=== PATIENT | male | born 1955 | race Caucasian/White ===

== ENCOUNTER → 2017-01-03 | Outpatient (CLI) | payer BC ==
[2017-01-03 13:57] LABS: CH 33.4; CHCM 35.1; HCT 44.9 % (39.0-53.0); HDW 2.32; HGB 15.7 gm/dL (13.0-17.5); MCH 33.4 pg (25.0-35.0); MCV 95.5 fL (80.0-100.0); Mean Platelet Volume 7.2; WBC 7.7 k/uL (3.8-10.6)
[2017-01-03 14:23] LABS: ALT 48 U/L (21-72); AST 29 U/L (17-59); Alkaline Phosphatase 72 U/L (38-126); Anion Gap 6 mmol/L; Blood Urea Nitrogen 10 mg/dL (9-20); C Reactive Protein <5.0 mg/L (<10.0); Calcium 10.3 mg/dL (8.4-10.2); Carbon Dioxide 26 mmol/L (22-30); Chloride 95 mmol/L (98-107); Glucose 102 mg/dL (74-99); Non-African American GFR(MDRD) >60 (>60 ml/min/1.73 sqM); Potassium 5.6 mmol/L (3.5-5.1); Sodium 127 mmol/L (137-145); Total Bilirubin 0.8 mg/dL (0.2-1.3); Total Protein 7.7 g/dL (6.3-8.2)
[2017-01-03 14:24] LABS: Rheumatoid Factor, Qnt <9 IU/mL (<12)
[2017-01-03 15:09] LABS: Erythrocyte Sedimentation Rate 8 mm/hr (0-15)
== END | disposition home or self-care (01) ==
LOC: LABWHC1 13:40
DX: R63.4 Abnormal weight loss (principal)
CPT/HCPCS: 36415; 80053; 84439; 84443; 85027; 85652; 86038; 86140; 86431

== ENCOUNTER → 2018-03-17 | Outpatient (CLI) | payer BC ==
--- NOTE | 2018-03-17 15:12 | XR ---
EXAMINATION TYPE: XR Hip Bilateral Complete DATE OF EXAM: 03/17/2018 CLINICAL HISTORY: Chronic bilateral hip pain TECHNIQUE: AP and frogleg views of the bilateral hips were obtained. COMPARISON: None. FINDINGS: There is no acute fracture/dislocation evident in either hip. The joint space in the righ t hip appears slightly narrowed in a cephalad direction with small subchondral cysts and marginal ost eophytes. The joint space in the left hip demonstrate small marginal osteophytes and mild cephalad n arrowing. The overlying soft tissue appears unremarkable. No suspicious osseous lesion is seen. Ather osclerosis is noted within the visualized portions of the pelvis. IMPRESSION: 1. No acute fracture or dislocation in either hip. 2. 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
--- NOTE | 2018-03-17 15:37 | XR ---
EXAMINATION TYPE: XR chest 2V DATE OF EXAM: 03/17/2018 COMPARISON: NONE HISTORY: Cough TECHNIQUE: Frontal and lateral views of the chest are obtained. FINDINGS: There is no focal air space opacity, pleural effusion, or pneumothorax seen. The cardiac silhouette size is upper limits of normal. The osseous structures are intact. There is pulmonary hy perinflation and flattening of the diaphragms relating to underlying COPD. Minimal multilevel degener ative changes of the spine are noted. IMPRESSION: No acute cardiopulmonary process. Radiographic sequela of COPD.
== END | disposition home or self-care (01) ==
LOC: RADXRMAIN 14:13
PROVIDERS: ATTEND Internal Medicine
DX: M16.0 Bilateral primary osteoarthritis of hip (principal); J44.9 Chronic obstructive pulmonary disease, unspecified
CPT/HCPCS: 71046; 73521

== ENCOUNTER 2018-11-02 11:18 | Emergency (ER) | payer BC ==
[2018-11-02 11:48] VITALS: RESP 16; TEMP 97.8
[2018-11-02] MEDS ORDERED: DIAZEPAM 5 MG TAB PO STA (13:21)
[2018-11-02] MEDS ORDERED: IBUPROFEN 800 MG TAB PO STA (13:21)
[2018-11-02] MEDS ORDERED: HYDROmorphone 1 MG/ML 1 ML SYRINGE IM STA (13:21)
[2018-11-02] MEDS ORDERED: DEXAMETHASONE 4 MG TAB PO STA (13:22)
[2018-11-02] MEDS ORDERED: ACETAMINOPHEN TAB 500 MG TAB PO STA (13:28)
--- NOTE | 2018-11-02 13:29 | ED ---
Back Pain [facility] - General Chief Complaint: Fall Stated Complaint: back pain Time Seen by Provider: 11/02/18 12:44 Source: patient, RN notes reviewed, old records reviewed Limitations: no limitations - History of Present Illness Initial Comments: This is a 62-year-old male the ER for evaluation. He presents today for evaluation regarding back pain, history of chronic back pain no trauma. Patient states he's on the floor today unable to stand up secondary to severe back pain. Patient is moving around but currently with the pain is been persistent. Patient does not want narcotic pain medication he states is female was causing her severe back pain that he has. Back pain appears to be more right-sided in nature than middle of back. Again denies any bowel or bladder issues. No neurological complaints no numbness and tingling down legs MD Complaint: back pain -: unknown (Patient is had back pain for months to years but more recently the last 2 weeks) Similar Symptoms Previously: Yes Place: home Radiation: none Severity: moderate Severity scale (1-10): 6 Quality: dull, crushing, aching Consistency: constant Improves With: none Worsens With: movement, sitting upright, walking Context: unknown Associated Symptoms: denies other symptoms - Related Data Home Medications Medication Instructions Recorded Confirmed ALPRAZolam [Xanax] 0.25 mg PO DAILY PRN 08/23/15 11/02/18 Aspirin [Adult Low Dose Aspirin EC] 81 mg PO DAILY 08/23/15 11/02/18 Benazepril HCl [Lotensin] 20 mg PO QAM 08/23/15 11/02/18 Carvedilol 25 mg PO BID 08/23/15 11/02/18 Citalopram Hydrobromide [CeleXA] 20 mg PO QAM 08/23/15 11/02/18 Spironolactone [Aldactone] 25 mg PO QAM 08/23/15 11/02/18 busPIRone HCl [Buspar] 10 mg PO DAILY 08/23/15 11/02/18 Acetaminophen [Tylenol 8 Hour] 650 mg PO Q12H PRN 11/02/18 11/02/18 Benazepril HCl 40 mg PO DAILY 11/02/18 11/02/18 Budesonide [Budesonide EC] 3 mg PO DAILY 11/02/18 11/02/18 Multivitamins, Thera [Multivitamin 1 tab PO DAILY 11/02/18 11/02/18 (formulary)] Pravastatin Sodium [Pravachol] 20 mg PO DAILY 11/02/18 11/02/18 Allergies Allergy/AdvReac Type Severity Reaction Status Date / Time cephalexin Allergy THROAT Verified 11/02/18 12:53 SWELLING Review of Systems ROS Statement: Those systems with pertinent positive or pertinent negative responses have been documented in the HPI. ROS Other: All systems not noted in ROS Statement are negative. Past Medical History Past Medical History: Hyperlipidemia, Hypertension Additional Past Medical History / Comment(s): ALLERGY. HEART ARRYTHMIA History of Any Multi-Drug Resistant Organisms: None Reported Past Surgical History: Heart Catheterization, Orthopedic Surgery Additional Past Surgical History / Comment(s): LEFT CARPAL TUNNEL Past Anesthesia/Blood Transfusion Reactions: No Reported Reaction Past Psychological History: Anxiety, Depression Smoking Status: Current every day smoker Past Alcohol Use History: Occasional Past Drug Use History: None Reported General Exam - General Exam Comments Initial Comments: Mild tenderness right lower extremity, negative SLR, no neurological findings Limitations: no limitations General appearance: alert, in no apparent distress Head exam: Present: atraumatic, normocephalic, normal inspection Eye exam: Present: normal appearance, PERRL, EOMI. Absent: scleral icterus, conjunctival injection, periorbital swelling ENT exam: Present: normal exam, mucous membranes moist Neck exam: Present: normal inspection. Absent: tenderness, meningismus, lymphadenopathy Respiratory exam: Present: normal lung sounds bilaterally. Absent: respiratory distress, wheezes, rales, rhonchi, stridor Cardiovascular Exam: Present: regular rate, normal rhythm, normal heart sounds. Absent: systolic murmur, diastolic murmur, rubs, gallop, clicks GI/Abdominal exam: Present: soft, normal bowel sounds. Absent: distended, tenderness, guarding, rebound, rigid Extremities exam: Present: normal inspection, full ROM, normal capillary refill. Absent: tenderness, pedal edema, joint swelling, calf tenderness Back exam: Present: normal inspection, full ROM, CVA tenderness (R), muscle spasm (Right sided), paraspinal tenderness. Absent: vertebral tenderness Neurological exam: Present: alert, oriented X3, CN II-XII intact Psychiatric exam: Present: normal affect, normal mood Skin exam: Present: warm, dry, intact, normal color. Absent: rash Course Vital Signs 11/02/18 11/02/18 11:46 15:52 Temperature 97.8 F Pulse Rate 84 88 Respiratory 16 16 Rate Blood Pressure 200/114 185/100 O2 Sat by Pulse 100 99 Oximetry - Reevaluation(s) Reevaluation #1: 11/02/18 15:13 Medical record is reviewed, patient again not asking for pain medication Reevaluation #2: 11/02/18 15:13 Patient is able to move around on bed rollover Medical Decision Making - Medical Decision Making 62 male the ER for evaluation of back pain. Chronic Back pain. Computed tomography scan is negative patient can be discharged - Radiology Data Radiology results: report reviewed (CT lumbar sacral spine abdominal pelvis negative for acute disease), image reviewed Disposition Clinical Impression: Back pain Disposition: HOME SELF-CARE Condition: Good Instructions (If sedation given, give patient instructions): Acute Low Back Pain (ED), Back Pain (ED), Lower Back Exercises (ED) Is patient prescribed a controlled substance at d/c from ED?: No Referrals: Sander Agustin MD [Primary Care Provider] - 1-2 days
--- NOTE | 2018-11-02 15:29 | CT ---
EXAMINATION TYPE: CT abdomen pelvis wo con DATE OF EXAM: 11/02/2018 COMPARISON: None INDICATION: Left flank pain. DLP: 353.3 mGycm, Automated exposure control for dose reduction was used. CONTRAST: 0 mL of Isovue 300. Study performed without Oral Contrast TECHNIQUE: Axial images were obtained from above the diaphragm to the pubic rami in the axial plane a t 5 mm thick sections. Reconstructed images are reviewed on the computer in the coronal plane. FINDINGS: Limited CT sections are obtained the lung bases. The lung bases are clear. Coronary artery calcific ation is noted. CT ABDOMEN: Liver: Normal Spleen: Normal Pancreas: Normal Adrenal glands: The adrenal glands are normal. Gallbladder: Normal Kidneys: No masses are evident. No hydronephrosis is present. No cysts are present. No renal stone s are identified. No hydronephrosis or hydroureter is evident. Aorta: Vascular calcification is within the aorta. Inferior vena cava: Normal. CT PELVIS: Loops of bowel within the abdomen and pelvis are normal. The study is performed without oral cont rast limiting bowel evaluation. Some fluid-filled loops of bowel are evident within the midabdomen. C onsider some ileus present. Appendix: Not identified. No suspicious inflammatory changes or dilated tubular structures are eviden t. Urinary bladder: Normal. Genitourinary structures: Prostate hypertrophy is present. Osseous structures: No suspicious lytic or sclerotic lesions. IMPRESSIONS: 1. No suspicious renal stones. 2. No suspicious abnormality to account for left flank pain. 3. Some small bowel ileus may be present. 4. Prostate hypertrophy
[2018-11-02 15:53] VITALS: BP 185/100; PULSE 88
== END 2018-11-02 15:52 | disposition home or self-care (01) ==
LOC: EC 11:18
DX: M62.830 Muscle spasm of back (principal); E78.5 Hyperlipidemia, unspecified; I10 Essential (primary) hypertension; F32.9 Major depressive disorder, single episode, unspecified; F41.9 Anxiety disorder, unspecified; F17.200 Nicotine dependence, unspecified, uncomplicated; Z88.1 Allergy status to other antibiotic agents; Z79.52 Long term (current) use of systemic steroids; Z79.82 Long term (current) use of aspirin; Z79.899 Other long term (current) drug therapy; Z86.79 Personal history of other diseases of the circulatory system; Z95.818 Presence of other cardiac implants and grafts; Z53.8 Procedure and treatment not carried out for other reasons
CPT/HCPCS: 74176; 99284; J8540

== ENCOUNTER 2022-10-22 13:56 | Inpatient (IN) | payer BC, MEDICARE ==
[2022-10-22 14:33] LABS: Basophils # (A) 0.1 k/uL (0-0.2); Basophils % (A) 1 %; Eosinophils # (A) 1.9 k/uL (0-0.7); Eosinophils % (A) 19 %; HCT 32.8 % (39.0-53.0); HGB 11.7 gm/dL (13.0-17.5); Lymphocytes # (A) 2.2 k/uL (1.0-4.8); Lymphocytes % (A) 21 %; MCH 31.8 pg (25.0-35.0); MCHC 35.5 g/dL (31.0-37.0); MCV 89.4 fL (80.0-100.0); Mean Platelet Volume 8.2; Monocytes # (A) 0.5 k/uL (0-1.0); Monocytes % (A) 5 %; Neutrophils # (A) 5.3 k/uL (1.3-7.7); Neutrophils % (A) 52 %; Platelet Count 248 k/uL (150-450); RBC 3.67 m/uL (4.30-5.90); RDW 12.2 % (11.5-15.5); WBC 10.1 k/uL (3.8-10.6)
[2022-10-22 14:48] LABS: ALT 16 U/L (4-49); AST 19 U/L (17-59); African American GFR (CKD) 41 (>60 ml/min/1.73 sqM); Albumin 4.2 g/dL (3.5-5.0); Alkaline Phosphatase 64 U/L (38-126); Anion Gap 9 mmol/L; Blood Urea Nitrogen 21 mg/dL (9-20); Calcium 9.1 mg/dL (8.4-10.2); Carbon Dioxide 18 mmol/L (22-30); Chloride 89 mmol/L (98-107); Glucose 111 mg/dL (74-99); Non-African American GFR(CKD) 35 (>60 ml/min/1.73 sqM); Potassium 5.8 mmol/L (3.5-5.1); Total Bilirubin 0.4 mg/dL (0.2-1.3); Total Protein 6.8 g/dL (6.3-8.2)
[2022-10-22 14:53] LABS: Sodium 116 mmol/L (137-145)
[2022-10-22 15:06] LABS: INR 0.9 (<1.2); Prothrombin Time 10.1 sec (9.0-12.0)
--- NOTE | 2022-10-22 15:55 | ED ---
General Adult HPI - General Chief complaint: Recheck/Abnormal Lab/Rx Stated complaint: abn labs Time Seen by Provider: 10/22/22 15:45 Source: patient, family, RN notes reviewed, old records reviewed Mode of arrival: wheelchair Limitations: no limitations - History of Present Illness Initial comments: This is a 66-year-old male who presents emergency department after she wanted Dr. Unger's office and he had blood work drawn the blood work showed sodium was low. Patient states he went to the office because he's been feeling weak over the last 2 weeks. Patient also states she's been quite nauseated and vomiting. Patient denies any fever chills. Patient denies any headache patient denies any numbness or weakness. Patient states he does feel little bit lightheaded occasionally. Patient denies any chest pain palpitations or difficulty breathi ng. Patient denies any abdominal pain. Patient denies any diarrhea. Patient denies any alcohol use though he used to be an alcoholic and he denies any illegal drug use. - Related Data Home Medications Medication Instructions Recorded Confirmed ALPRAZolam [Xanax] 0.25 mg PO DAILY PRN 08/23/15 11/02/18 Aspirin [Adult Low Dose Aspirin EC] 81 mg PO DAILY 08/23/15 11/02/18 Benazepril HCl [Lotensin] 20 mg PO QAM 08/23/15 11/02/18 Carvedilol 25 mg PO BID 08/23/15 11/02/18 Citalopram Hydrobromide [CeleXA] 20 mg PO QAM 08/23/15 11/02/18 Spironolactone [Aldactone] 25 mg PO QAM 08/23/15 11/02/18 busPIRone HCl [Buspar] 10 mg PO DAILY 08/23/15 11/02/18 Acetaminophen [Tylenol 8 Hour] 650 mg PO Q12H PRN 11/02/18 11/02/18 Benazepril HCl 40 mg PO DAILY 11/02/18 11/02/18 Budesonide [Budesonide EC] 3 mg PO DAILY 11/02/18 11/02/18 Multivitamins, Thera [Multivitamin 1 tab PO DAILY 11/02/18 11/02/18 (formulary)] Pravastatin Sodium [Pravachol] 20 mg PO DAILY 11/02/18 11/02/18 Allergies Allergy/AdvReac Type Severity Reaction Status Date / Time cephalexin Allergy THROAT Verified 11/02/18 12:53 SWELLING Review of Systems ROS Statement: Those systems with pertinent positive or pertinent negative responses have been documented in the HPI. ROS Other: All systems not noted in ROS Statement are negative. Past Medical History Past Medical History: Atrial Fibrillation, Hyperlipidemia, Hypertension Additional Past Medical History / Comment(s): ALLERGY. HEART ARRYTHMIA History of Any Multi-Drug Resistant Organisms: None Reported Past Surgical History: Heart Catheterization, Orthopedic Surgery Additional Past Surgical History / Comment(s): LEFT CARPAL TUNNEL Past Anesthesia/Blood Transfusion Reactions: No Reported Reaction Past Psychological History: Anxiety, Depression Smoking Status: Current every day smoker Past Alcohol Use History: Occasional Past Drug Use History: None Reported General Exam - General Exam Comments Initial Comments: GENERAL: Patient is well-developed and well-nourished. Patient is nontoxic and well- hydrated and is in mild distress. ENT: Neck is soft and supple. No significant lymphadenopathy is noted. Oropharynx is clear. Moist mucous membranes. Neck has full range of motion without eliciting any pain. EYES: The sclera were anicteric and conjunctiva were pink and moist. Extraocular movements were intact and pupils were equal round and reactive to light. Eyelids were unremarkable. PULMONARY: Unlabored respirations. Good breath sounds bilaterally. No audible rales rhonchi or wheezing was noted. CARDIOVASCULAR: There is a regular rate and rhythm without any murmurs gallops or rubs. ABDOMEN: Soft and nontender with normal bowel sounds. SKIN: Skin is clear with no lesions or rashes and otherwise unremarkable. NEUROLOGIC: Patient is alert and oriented x3. Cranial nerves II through XII are grossly intact. Motor and sensory are also intact. Normal speech, volume and content. Symmetrical smile. MUSCULOSKELETAL: Normal extremities with adequate strength and full range of motion. LYMPHATICS: No significant lymphadenopathy is noted PSYCHIATRIC: Normal psychiatric evaluation. Limitations: no limitations Course Vital Signs 10/22/22 10/22/22 14:02 15:53 Temperature 97.9 F Pulse Rate 71 59 L Respiratory 16 20 Rate Blood Pressure 121/57 143/61 O2 Sat by Pulse 99 100 Oximetry Medical Decision Making - Medical Decision Making EKG was interpreted by myself shows sinus bradycardia 58 bpm [place] interval 294 QRS is under 1 Q-T intervals 490 QTC is 405. Patient's EKG shows no ST segment elevation or depression Was pt. sent in by a medical professional or institution (, [facility], [employer], urgent care, hospital, or jail...) When possible be specific @ -Dr. Unger sent the patient in Did you speak to anyone other than the patient for history (EMS, parent, family, police, friend...)? What history was obtained from this source @ -No Did you review nursing and triage notes (agree or disagree)? Why? @ -I reviewed and agree with nursing and triage notes Were old charts reviewed (outside hosp., previous admission, EMS record, old EKG, old radiological studies, urgent care reports/EKG's, jail records)? Report findings @ -No old charts were reviewed Differential Diagnosis (chest pain, altered mental status, abdominal pain women, abdominal pain men, vaginal bleeding, weakness, fever, dyspnea, syncope, headache, dizziness, GI bleed, back pain, seizure, CVA, palpatations, mental health, musculoskeletal)? @ -Differential Weakness: Hypoglycemia, shock, sepsis, hyponatremia, anemia, infection, OK, ETOH, adverse medicine reaction, overdose, stroke, this is not meant to be an all-inclusive list. EKG interpreted by me (3pts min.). @ -As above X-rays interpreted by me (1pt min.). @ -None done CT interpreted by me (1pt min.). @ -None done U/S interpreted by me (1pt. min.). @ -None done What testing was considered but not performed or refused? (CT, X-rays, U/S, labs)? Why? @ -None What meds were considered but not given or refused? Why? @ -None Did you discuss the management of the patient with other professionals (professionals i.e. [facility] Santamaria, [employer], lab, RT, psych nurse, group social worker, ferry operator, teacher, parking officer, trimming caser)? Give summary @ -Dr. Unger he agreed to admit the patient I spoke with him about results Was smoking cessation discussed for >3mins.? @ -No Was critical care preformed (if so, how long)? @ -No Were there social determinants of health that impacted care today? How? (Homelessness, low income, unemployed, alcoholism, drug addiction, transportation, low edu. Level, literacy, decrease access to med. care, shelter, rehab)? @ -No Was there de-escalation of care discussed even if they declined (Discuss DNR or withdrawal of care, Hospice)? DNR status @ -No What co-morbidities impacted this encounter? (DM, HTN, Smoking, COPD, CAD, Cancer, CVA, ARF, Chemo, Hep., AIDS, mental health diagnosis, sleep apnea, morbi d obesity)? @ -None Was patient admitted / discharged? Hospital course, mention meds given and route, prescriptions, significant lab abnormalities, going to OR and other pertinent info. @ -She was given a fluid bolus also got Zofran for the vomiting. I spoke with Dr. Unger he agreed to admit the patient admitted the patient I consult the nephrology Undiagnosed new problem with uncertain prognosis? @ -No Drug Therapy requiring intensive monitoring for toxicity (Heparin, Nitro, In sulin, Cardizem)? @ -No Were any procedures done? @ -No Diagnosis/symptom? @ -Hyponatremia Acute, or Chronic, or Acute on Chronic? @ -Acute Uncomplicated (without systemic symptoms) or Complicated (systemic symptoms)? @ -Complicated Side effects of treatment? @ -No Exacerbation, Progression, or Severe Exacerbation? @ -No Poses a threat to life or bodily function? How? (Chest pain, USA, OK, pneumonia, PE, COPD, DKA, ARF, appy, cholecystitis, CVA, Diverticulitis, Homicidal, Suicidal, threat to staff... and all critical care pts) @ -Abscess could lead to further morbidity mortality Diagnosis/symptom? @ -Renal insufficiency Acute, or Chronic, or Acute on Chronic? @ -Acute Uncomplicated (without systemic symptoms) or Complicated (systemic symptoms)? @ -Complicated Side effects of treatment? @ -none Exacerbation, Progression, or Severe Exacerbation] @ -no Poses a threat to life or bodily function? @ -no Diagnosis/symptom? @ -Hyperkalemia Acute, or Chronic, or Acute on Chronic? @ -Acute Uncomplicated (without systemic symptoms) or Complicated (systemic symptoms)? @ -Complicated Side effects of treatment? @ -none Exacerbation, Progression, or Severe Exacerbation] @ -no Poses a threat to life or bodily function? @ -no - Lab Data Result diagrams: 10/22/22 14:07 06/27/23 14:07 Lab Results 10/22/22 10/22/22 10/22/22 Range/Units 14:07 14:07 14:07 WBC 10.1 (3.8-10.6) k/uL RBC 3.67 L (4.30-5.90) m/uL Hgb 11.7 L (13.0-17.5) gm/dL Hct 32.8 L (39.0-53.0) % MCV 89.4 (80.0-100.0) fL MCH 31.8 (25.0-35.0) pg MCHC 35.5 (31.0-37.0) g/dL RDW 12.2 (11.5-15.5) % Plt Count 248 (150-450) k/uL MPV 8.2 Neutrophils % 52 % Lymphocytes % 21 % Monocytes % 5 % Eosinophils % 19 % Basophils % 1 % Neutrophils # 5.3 (1.3-7.7) k/uL Lymphocytes # 2.2 (1.0-4.8) k/uL Monocytes # 0.5 (0-1.0) k/uL Eosinophils # 1.9 H (0-0.7) k/uL Basophils # 0.1 (0-0.2) k/uL PT 10.1 (9.0-12.0) sec INR 0.9 (<1.2) Sodium 116 L* (137-145) mmol/L Potassium 5.8 H (3.5-5.1) mmol/L Chloride 89 L (98-107) mmol/L Carbon Dioxide 18 L (22-30) mmol/L Anion Gap 9 mmol/L BUN 21 H (9-20) mg/dL Creatinine 1.93 H (0.66-1.25) mg/dL Est GFR (CKD-EPI)AfAm 41 (>60 ml/min/1.73 sqM) Est GFR (CKD-EPI)NonAf 35 (>60 ml/min/1.73 sqM) Glucose 111 H (74-99) mg/dL Calcium 9.1 (8.4-10.2) mg/dL Total Bilirubin 0.4 (0.2-1.3) mg/dL AST 19 (17-59) U/L ALT 16 (4-49) U/L Alkaline Phosphatase 64 (38-126) U/L Troponin I (0.000-0.034) ng/mL Total Protein 6.8 (6.3-8.2) g/dL Albumin 4.2 (3.5-5.0) g/dL 10/22/22 Range/Units 14:07 WBC (3.8-10.6) k/uL RBC (4.30-5.90) m/uL Hgb (13.0-17.5) gm/dL Hct (39.0-53.0) % MCV (80.0-100.0) fL MCH (25.0-35.0) pg MCHC (31.0-37.0) g/dL RDW (11.5-15.5) % Plt Count (150-450) k/uL MPV Neutrophils % % Lymphocytes % % Monocytes % % Eosinophils % % Basophils % % Neutrophils # (1.3-7.7) k/uL Lymphocytes # (1.0-4.8) k/uL Monocytes # (0-1.0) k/uL Eosinophils # (0-0.7) k/uL Basophils # (0-0.2) k/uL PT (9.0-12.0) sec INR (<1.2) Sodium (137-145) mmol/L Potassium (3.5-5.1) mmol/L Chloride (98-107) mmol/L Carbon Dioxide (22-30) mmol/L Anion Gap mmol/L BUN (9-20) mg/dL Creatinine (0.66-1.25) mg/dL Est GFR (CKD-EPI)AfAm (>60 ml/min/1.73 sqM) Est GFR (CKD-EPI)NonAf (>60 ml/min/1.73 sqM) Glucose (74-99) mg/dL Calcium (8.4-10.2) mg/dL Total Bilirubin (0.2-1.3) mg/dL AST (17-59) U/L ALT (4-49) U/L Alkaline Phosphatase (38-126) U/L Troponin I <0.012 (0.000-0.034) ng/mL Total Protein (6.3-8.2) g/dL Albumin (3.5-5.0) g/dL Disposition Clinical Impression: Hyponatremia, Hyperkalemia, Renal insufficiency Disposition: ADMITTED IP TO THIS HOSP Referrals: Roland Unger Jr, [Primary Care Provider] - 1-2 days Time of Disposition: 16:13
[2022-10-22] MEDS ORDERED: SODIUM CHLORIDE 0.9% 1,000 ML IV ONE (16:27)
[2022-10-22] MEDS ORDERED: ONDANSETRON 4 MG/2 ML VIAL IVP PRN (16:28)
[2022-10-22] MEDS ORDERED: SODIUM CHLORIDE 0.9% 500 ML 500 ML IV ONE (16:28)
[2022-10-22] MEDS ORDERED: ONDANSETRON 4 MG/2 ML VIAL IVP STA (16:28)
[2022-10-22] MEDS ORDERED: ALPRAZolam 0.25 MG TAB PO PRN (20:42)
[2022-10-22 20:57] LABS: ALT 16 U/L (4-49); AST 19 U/L (17-59); African American GFR (CKD) 52 (>60 ml/min/1.73 sqM); Alkaline Phosphatase 61 U/L (38-126); Anion Gap 10 mmol/L; Blood Urea Nitrogen 20 mg/dL (9-20); Calcium 8.8 mg/dL (8.4-10.2); Carbon Dioxide 20 mmol/L (22-30); Chloride 89 mmol/L (98-107); Glucose 91 mg/dL (74-99); Non-African American GFR(CKD) 45 (>60 ml/min/1.73 sqM); Potassium 5.2 mmol/L (3.5-5.1); Total Bilirubin 0.3 mg/dL (0.2-1.3); Total Protein 6.7 g/dL (6.3-8.2)
[2022-10-22 20:59] LABS: Sodium 119 mmol/L (137-145)
[2022-10-22] MEDS ORDERED: ALPRAZolam 0.25 MG TAB PO SCH (21:00)
[2022-10-22] MEDS: PRAVASTATIN SODIUM 20 MG TAB PO SCH (21:44)
[2022-10-22 22:44] LABS: Appearance,Urine Clear (Clear); Bilirubin,Urine Negative (Negative); Blood,Urine Negative (Negative); Color,Urine Yellow; Glucose,Urine (UA) Negative (Negative); Ketones,Urine Negative (Negative); Leukocyte Esterase,Urine Negative (Negative); Nitrite,Urine Negative (Negative); PH, Urine 5.5 (5.0-8.0); Protein,Urine Negative (Negative); Urobilinogen,Urine <2.0 mg/dL (<2.0)
[2022-10-23 04:26] LABS: ALT 14 U/L (4-49); AST 17 U/L (17-59); African American GFR (CKD) 57 (>60 ml/min/1.73 sqM); Albumin 3.6 g/dL (3.5-5.0); Alkaline Phosphatase 55 U/L (38-126); Anion Gap 10 mmol/L; Blood Urea Nitrogen 19 mg/dL (9-20); Calcium 8.6 mg/dL (8.4-10.2); Carbon Dioxide 15 mmol/L (22-30); Chloride 93 mmol/L (98-107); Glucose 77 mg/dL (74-99); Non-African American GFR(CKD) 50 (>60 ml/min/1.73 sqM); Potassium 4.7 mmol/L (3.5-5.1); Total Bilirubin 0.4 mg/dL (0.2-1.3); Total Protein 6.1 g/dL (6.3-8.2)
[2022-10-23 04:36] LABS: Sodium 118 mmol/L (137-145)
[2022-10-23] MEDS: carvediloL 12.5 MG TAB PO SCH ×2 (06:05→16:18)
[2022-10-23] MEDS: SODIUM CHLORIDE 0.9% 1,000 ML IV SCH ×2 (06:06→11:07)
[2022-10-23] MEDS: SODIUM CHLORIDE TAB 1 GM TAB PO SCH (07:40)
[2022-10-23] MEDS: SODIUM BICARBONATE TAB 650 MG TAB PO SCH ×2 (07:40→20:48)
[2022-10-23] MEDS: busPIRone HCl 5 MG TAB PO SCH (07:40)
[2022-10-23] MEDS: CITALOPRAM HYDROBROMIDE 20 MG TAB PO SCH (07:40)
[2022-10-23] MEDS: ASPIRIN 81 MG PO SCH (07:40)
[2022-10-23 11:06] LABS: African American GFR (CKD) 70 (>60 ml/min/1.73 sqM); Anion Gap 8 mmol/L; Blood Urea Nitrogen 18 mg/dL (9-20); Calcium 8.2 mg/dL (8.4-10.2); Carbon Dioxide 18 mmol/L (22-30); Chloride 96 mmol/L (98-107); Glucose 118 mg/dL (74-99); Non-African American GFR(CKD) 61 (>60 ml/min/1.73 sqM); Sodium 122 mmol/L (137-145)
[2022-10-23] MEDS: PANTOPRAZOLE 40 MG/10 ML VIAL IVP SCH (11:07)
--- NOTE | 2022-10-23 14:23 | P.HPIM ---
History of Present Illness H&P Date: 10/23/22 Chief Complaint: Progressive weakness,N/V 2 weeks, hyponatremia, renal failure This is a 66-year-old gentleman with past medical history significant for atrial fibrillation, hypertension, hyperlipidemia, anxiety, depression, history of alcohol abuse-quit 2 years ago-reports last drink was a beer with his son 3 months ago, ongoing nicotine dependence directed to the ER by PCPs office related to abnormal labs. Patient reports progressive weakness, nausea and vomiting , occasional lightheadedness over the last 2 weeks, presented to his PCP, labs obtained reflecting hyponatremia and acute renal failure. Denies diarrhea Denies abdominal pain. Denies any chest pain, palpitations or shortness of breath. Denies any sweats, chills, congestion or headache. On admission afebrile, normal WBC, hemoglobin 11.7, platelets 248, INR 0.9, sodium 116, potassium 5.8, bicarb 18, BUN 21, creatinine 1.93, GFR 35,glucose 111, troponin negative 1. UA reporting random sodium less than 20, serum alcohol less than 10. Received a fluid bolus and Zofran in the ER. Sodium currently increased to 118, potassium 4.7, bicarb 15. Renal function improving, BUN 19, creatinine 1.45, GFR 61. EKG reported sinus bradycardia. No seizure activity. Review of Systems ROS Statement: Those systems with pertinent positive or pertinent negative responses have been documented in the HPI. ROS Other: All systems not noted in ROS Statement are negative. Past Medical History Past Medical History: Atrial Fibrillation, Hyperlipidemia, Hypertension Additional Past Medical History / Comment(s): ALLERGY. HEART ARRYTHMIA History of Any Multi-Drug Resistant Organisms: None Reported Past Surgical History: Heart Catheterization, Orthopedic Surgery Additional Past Surgical History / Comment(s): LEFT CARPAL TUNNEL Past Anesthesia/Blood Transfusion Reactions: No Reported Reaction Past Psychological History: Anxiety, Depression Smoking Status: Current every day smoker Past Alcohol Use History: Occasional Additional Past Alcohol Use History / Comment(s): SMOKED FOR: 20 YRS. PPD: 3/4 PACK Past Drug Use History: None Reported Medications and Allergies Home Medications Medication Instructions Recorded Confirmed Type Aspirin [Adult Low Dose Aspirin EC] 81 mg PO DAILY 08/23/15 10/22/22 History Carvedilol 25 mg PO BID 08/23/15 10/22/22 History Citalopram Hydrobromide [CeleXA] 20 mg PO DAILY 08/23/15 10/22/22 History Spironolactone [Aldactone] 25 mg PO HS 08/23/15 10/22/22 History Pravastatin Sodium [Pravachol] 20 mg PO HS 11/02/18 10/22/22 History ALPRAZolam [Xanax] 0.25 mg PO BID PRN 10/22/22 10/22/22 History ALPRAZolam [Xanax] 0.25 mg PO HS 10/22/22 10/22/22 History Benazepril HCl [Lotensin] 40 mg PO HS 10/22/22 10/22/22 History busPIRone HCL [Buspirone HCl] 15 mg PO DAILY 10/22/22 10/22/22 History Allergies Allergy/AdvReac Type Severity Reaction Status Date / Time cephalexin Allergy THROAT Verified 10/22/22 17:03 SWELLING Physical Exam Vitals: Vital Signs Temp Pulse Pulse Resp BP BP Pulse Ox 10/23/22 08:00 98.2 F 76 16 83/53 98 10/23/22 06:04 89/51 10/23/22 04:00 98.4 F 73 18 97/52 97 10/23/22 02:00 67 18 10/23/22 00:00 98.0 F 67 18 94/51 95 10/22/22 21:44 98.1 F 65 18 109/68 100 10/22/22 20:00 67 18 10/22/22 19:45 102/49 99 10/22/22 19:30 120/57 100 10/22/22 19:15 120/57 10/22/22 19:00 105/55 100 10/22/22 18:45 105/55 99 10/22/22 18:30 121/100 99 10/22/22 18:15 121/100 100 10/22/22 18:00 18 125/48 94 L 10/22/22 17:45 18 125/48 100 10/22/22 17:30 20 118/62 99 10/22/22 17:15 16 118/62 10/22/22 17:00 20 112/49 10/22/22 16:45 14 112/49 10/22/22 16:30 123/80 100 10/22/22 16:15 123/80 99 10/22/22 16:00 143/61 98 10/22/22 15:53 59 L 20 143/61 100 10/22/22 14:02 97.9 F 71 16 121/57 99 Intake and Output 10/22/22 10/23/22 10/23/22 22:59 06:59 14:59 Intake Total 300 180 Output Total 450 Balance -150 180 Intake: Intake, IV Titration 300 Amount Sodium Chloride 0.9% 1, 300 000 ml @ 75 mls/hr IV . [id number] [facility] Rx#:[id number] Oral 180 Output: Urine 450 Other: Voiding Method Urinal Urinal Urinal # Voids 1 Weight 65.771 kg PHYSICAL EXAM: VITAL SIGNS: [As above] GENERAL: Sitting up in bed, no acute distress HEENT: Normocephalic, atraumatic, Conjunctivae normal. eyes normal. NECK: Supple, No JVD. No thyroid enlargement. No LNs CARDIOVASCULAR: S1, S2 regular..No murmur RESPIRATION: Breath sounds diminished in the bases. No rhonchi or crackles. No bronchial breathing. ABDOMEN: Soft, nontender . No guarding. no masses palpable. No ascites, No hepatosplenomegaly.Bowel sounds heard. LEGS: No edema. no swelling PSYCHIATRY: Alert and oriented X3, mood and affect normal. NERVOUS SYSTEM: Cranial N 2-12 grossly normal. No focal deficits. Strength and sensation grossly intact.. Skin: Warm and dry, no rash Results CBC & Chem 7: 10/22/22 14:07 10/23/22 10:28 Labs: Abnormal Lab Results - Last 24 Hours (Table) 10/22/22 10/22/22 10/22/22 Range/Units 14:07 14:07 20:14 RBC 3.67 L (4.30-5.90) m/uL Hgb 11.7 L (13.0-17.5) gm/dL Hct 32.8 L (39.0-53.0) % Eosinophils # 1.9 H (0-0.7) k/uL Sodium 116 L* 119 L* (137-145) mmol/L Potassium 5.8 H 5.2 H (3.5-5.1) mmol/L Chloride 89 L 89 L (98-107) mmol/L Carbon Dioxide 18 L 20 L (22-30) mmol/L BUN 21 H (9-20) mg/dL Creatinine 1.93 H 1.57 H (0.66-1.25) mg/dL Glucose 111 H (74-99) mg/dL Total Protein (6.3-8.2) g/dL Ur Random Sodium (40-220) mmol/L 10/22/22 10/23/22 Range/Units 22:10 03:09 RBC (4.30-5.90) m/uL Hgb (13.0-17.5) gm/dL Hct (39.0-53.0) % Eosinophils # (0-0.7) k/uL Sodium 118 L* (137-145) mmol/L Potassium (3.5-5.1) mmol/L Chloride 93 L (98-107) mmol/L Carbon Dioxide 15 L (22-30) mmol/L BUN (9-20) mg/dL Creatinine 1.45 H (0.66-1.25) mg/dL Glucose (74-99) mg/dL Total Protein 6.1 L (6.3-8.2) g/dL Ur Random Sodium <20 L (40-220) mmol/L Thrombosis Risk Factor Assmnt - Choose All That Apply Any of the Below Risk Factors Present?: No Other Risk Factors: Yes Each Risk Factor Represents 2 Points: Age 61-74 years Other congenital or acquired thrombophilia - If yes, enter type in comment: No Thrombosis Risk Factor Assessment Total Risk Factor Score: 2 Thrombosis Risk Factor Assessment Level: Low Risk Assessment and Plan Assessment: Acute hyponatremia Acute renal failure Hyperkalemia Chronic atrial fibrillation Hypertension Hyperlipidemia Anxiety Depression Ongoing nicotine dependence History of alcohol abuse Plan: Continue on current medication regime ,monitoring and symptomatic treatment. Maintain IV fluid hydration. Home meds: MAGNO inhibitor and Aldactone placed on hold. Nephrology consult in place, recommendations pending. PPI for GI prophylaxis ordered. Smoking cessation reinforced. PT/OT consulted. The impression and plan of care has been dictated as directed. : I performed a history and examination of this patient, discussed the same with the dictator. I agree with the dictator's note ,documented as a scribe. Any additional findings or plans will be noted.
--- NOTE | 2022-10-23 15:55 | P.NPCON ---
History of Present Illness - Reason for Consult hyponatremia - History of Present Illness Patient is a 66 yr old male admitted with h/o nausea , vomiting for about 2 weeks prior to admission. C/o increased weakness and lightheadedness. Sodium was 116 on admission. No previous h/o low sodium. Cr was 1.57 on admission, decreased to 1.2 now. BP was low with systolic in the 90s on admission. Maintained on MAGNO/I at home. No urinary symptoms. No diuretics at home. Review of Systems as per HPI Past Medical History Past Medical History: Atrial Fibrillation, Hyperlipidemia, Hypertension Additional Past Medical History / Comment(s): ALLERGY. HEART ARRYTHMIA History of Any Multi-Drug Resistant Organisms: None Reported Past Surgical History: Heart Catheterization, Orthopedic Surgery Additional Past Surgical History / Comment(s): LEFT CARPAL TUNNEL Past Anesthesia/Blood Transfusion Reactions: No Reported Reaction Past Psychological History: Anxiety, Depression Smoking Status: Current every day smoker Past Alcohol Use History: Occasional Additional Past Alcohol Use History / Comment(s): SMOKED FOR: 20 YRS. PPD: 3/4 PACK Past Drug Use History: None Reported Medications and Allergies Home Medications Medication Instructions Recorded Confirmed Type Aspirin [Adult Low Dose Aspirin EC] 81 mg PO DAILY 08/23/15 10/22/22 History Carvedilol 25 mg PO BID 08/23/15 10/22/22 History Citalopram Hydrobromide [CeleXA] 20 mg PO DAILY 08/23/15 10/22/22 History Spironolactone [Aldactone] 25 mg PO HS 08/23/15 10/22/22 History Pravastatin Sodium [Pravachol] 20 mg PO HS 11/02/18 10/22/22 History ALPRAZolam [Xanax] 0.25 mg PO BID PRN 10/22/22 10/22/22 History ALPRAZolam [Xanax] 0.25 mg PO HS 10/22/22 10/22/22 History Benazepril HCl [Lotensin] 40 mg PO HS 10/22/22 10/22/22 History busPIRone HCL [Buspirone HCl] 15 mg PO DAILY 10/22/22 10/22/22 History Allergies Allergy/AdvReac Type Severity Reaction Status Date / Time cephalexin Allergy THROAT Verified 10/22/22 17:03 SWELLING Physical Exam Vitals: Vital Signs Temp Pulse Pulse Resp BP BP Pulse Ox 10/23/22 11:47 98 F 86 18 107/63 98 10/23/22 08:00 98.2 F 76 16 83/53 98 10/23/22 06:04 89/51 10/23/22 04:00 98.4 F 73 18 97/52 97 10/23/22 02:00 67 18 10/23/22 00:00 98.0 F 67 18 94/51 95 10/22/22 21:44 98.1 F 65 18 109/68 100 10/22/22 20:00 67 18 10/22/22 19:45 102/49 99 10/22/22 19:30 120/57 100 10/22/22 19:15 120/57 10/22/22 19:00 105/55 100 10/22/22 18:45 105/55 99 10/22/22 18:30 121/100 99 10/22/22 18:15 121/100 100 10/22/22 18:00 18 125/48 94 L 10/22/22 17:45 18 125/48 100 10/22/22 17:30 20 118/62 99 10/22/22 17:15 16 118/62 10/22/22 17:00 20 112/49 10/22/22 16:45 14 112/49 10/22/22 16:30 123/80 100 10/22/22 16:15 123/80 99 10/22/22 16:00 143/61 98 10/22/22 15:53 59 L 20 143/61 100 Intake and Output 10/23/22 10/23/22 10/23/22 06:59 14:59 22:59 Intake Total 300 620 Output Total 450 350 Balance -150 270 Intake: Intake, IV Titration 300 Amount Sodium Chloride 0.9% 1, 300 000 ml @ 75 mls/hr IV . [id number] [facility] Rx#:[id number] Oral 620 Output: Urine 450 350 Other: Voiding Method Urinal Urinal # Voids 1 1 Patient is awake, comfortable, no acute distress. Alert and oriented x3 Lungs are clear CVS S1 and S2 Abdomen is soft, non tender. Extremities show no edema. 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 Results - Lab Results Most recent lab results Calcium 8.2 mg/dL (8.4-10.2) L 10/23/22 10:28 10/22/22 14:07 10/23/22 10:28 Assessment and Plan Assessment: 1. Hypovolemic hyponatremia, improving with IVF. Saline was decreased to avoid rapid correction. Increased back to 75ml/ hr now. 2. Nausea, vomiting, improved. 3. Hyperkalemia secondary to LINETTE, in the setting of use of MAGNO/I 4. Acute kidney injury, likely hymodynamic ATN secondary to hypotension, nonoliguric and improved. 5. Non gap metabolic acidosis associated with LINETTE and IVF. Plan: Continue IVF Repeat labs in am add sodium bicarbonate. Sodium chloride tab x1 Continue to monitor sodium levels Continue to hold MAGNO/I for now.
[2022-10-23] MEDS: PRAVASTATIN SODIUM 20 MG TAB PO SCH (20:48)
[2022-10-23] MEDS ORDERED: ALPRAZolam 0.25 MG TAB PO SCH ×2 (21:00→23:00)
[2022-10-24] MEDS: carvediloL 12.5 MG TAB PO SCH ×2 (05:56→15:50)
[2022-10-24] MEDS: PANTOPRAZOLE 40 MG/10 ML VIAL IVP SCH (08:18)
[2022-10-24] MEDS: SODIUM CHLORIDE TAB 1 GM TAB PO SCH (08:18)
[2022-10-24] MEDS: CITALOPRAM HYDROBROMIDE 20 MG TAB PO SCH (08:18)
[2022-10-24] MEDS: busPIRone HCl 5 MG TAB PO SCH (08:18)
[2022-10-24] MEDS: SODIUM BICARBONATE TAB 650 MG TAB PO SCH (08:18)
[2022-10-24] MEDS: ASPIRIN 81 MG PO SCH (08:18)
[2022-10-24] MEDS: SODIUM CHLORIDE 0.9% 1,000 ML IV SCH (08:19)
[2022-10-24 09:57] LABS: African American GFR (CKD) >90 (>60 ml/min/1.73 sqM); Anion Gap 7 mmol/L; Blood Urea Nitrogen 11 mg/dL (9-20); Calcium 8.5 mg/dL (8.4-10.2); Carbon Dioxide 20 mmol/L (22-30); Chloride 100 mmol/L (98-107); Glucose 102 mg/dL (74-99); Non-African American GFR(CKD) 85 (>60 ml/min/1.73 sqM); Potassium 4.6 mmol/L (3.5-5.1); Sodium 127 mmol/L (137-145)
[2022-10-24 11:54] VITALS: RESP 16
--- NOTE | 2022-10-24 12:11 | P.PN ---
Subjective Patient is seen for follow-up for hyponatremia. Serum sodium has been improving with normal saline. Overall patient is feeling better. Nausea and vomiting has improved. Sodium is 127 today. Objective - Vital Signs Vital signs: Vital Signs Temp 98.3 F 10/24/22 11:52 Pulse 57 L 10/24/22 11:52 Resp 16 10/24/22 11:52 BP 111/68 10/24/22 11:52 Pulse Ox 100 10/24/22 11:52 FiO2 Intake & Output 10/23/22 10/24/22 10/24/22 18:59 06:59 18:59 Intake Total 980 900 600 Output Total 350 Balance 630 900 600 Intake: Intake, IV Titration 900 Amount Sodium Chloride 0.9% 1, 900 000 ml @ 75 mls/hr IV . [id number] [facility] Rx#:[id number] Oral 980 600 Output: Urine 350 Other: Voiding Method Urinal Urinal Toilet # Voids 1 1 1 - Exam Patient is awake, comfortable, no acute distress. Alert and oriented x3 Lungs are clear CVS S1 and S2 Abdomen is soft, non tender. Extremities show no edema. 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 - Labs CBC & Chem 7: 10/22/22 14:07 10/24/22 09:29 Labs: Abnormal Lab Results - Last 24 Hours (Table) 10/23/22 10/24/22 Range/Units 15:49 09:29 Sodium 125 L 127 L (137-145) mmol/L Carbon Dioxide 20 L (22-30) mmol/L Glucose 102 H (74-99) mg/dL Assessment and Plan Assessment: 1. Hypovolemic hyponatremia, improving with saline. Status post sodium chloride tab. Blood pressure remains on the lower side. 2. Nausea, vomiting, improved. 3. Hyperkalemia secondary to LINETTE, in the setting of use of MAGNO/I 4. Acute kidney injury, likely hymodynamic ATN secondary to hypotension, nonoliguric and improved. 5. Non gap metabolic acidosis associated with LINETTE and IVF. Plan: Continue IVF Repeat labs in am Continue sodium bicarbonate. DC sodium chloride tab Continue to monitor sodium levels Continue to hold MAGNO/I for now.
[2022-10-24] MEDS ORDERED: NICOTINE 21MG/24HR PATCH TRANSDERM SCH (12:15)
--- NOTE | 2022-10-24 13:23 | P.DS ---
Providers Date of admission: 10/22/22 16:29 Expected date of discharge: 10/24/22 Attending physician: Roland Unger Consults: 10/22/22 16:27 Consult Physician Urgent Consulting Provider: Dang Dawkins Consult Reason/Comments: Renal insufficiency Do you want consulting provider notified?: Yes Primary care physician: Roland Unger [facility] Course: Final diagnoses Acute hyponatremia, improving Acute renal failure , significantly improved Hyperkalemia Chronic atrial fibrillation Hypertension Hyperlipidemia Anxiety Depression Ongoing nicotine dependence History of alcohol abuse Hospital course:This is a pleasant 66-year-old gentleman with past medical history significant for atrial fibrillation, hypertension, hyperlipidemia, anxiety, depression, history of alcohol abuse-quit 2 years ago-reports last drink was a beer with his son 3 months ago, ongoing nicotine dependence directed to the ER by PCPs office related to abnormal labs. Patient reports progressive weakness, nausea and vomiting , occasional lightheadedness over the last 2 weeks, presented to his PCP, labs obtained reflecting hyponatremia and acute renal failure. Denies diarrhea Denies abdominal pain. Denies any chest pain, palpitations or shortness of breath. Denies any sweats, chills, congestion or headache. On admission afebrile, normal WBC, hemoglobin 11.7, platelets 248, INR 0.9, sodium 116, potassium 5.8, bicarb 18, BUN 21, creatinine 1.93, GFR 35,glucose 111, troponin negative 1. UA reporting random sodium less than 20, serum alcohol less than 10. Received a fluid bolus and Zofran in the ER. Sodium currently increased to 118, potassium 4.7, bicarb 15. Renal function improving, BUN 19, creatinine 1.45, GFR 61. EKG reported sinus bradycardia. No seizure activity. Maintained on IV fluid hydration, oral sodium chloride and oral sodium bicarbonate with MAGNO inhibitor and Aldactone held. Significant clinical improvement. Sitting up in chair, good diet intake with sodium 127, potassium 4.6, chloride 100, bicarb 20, BUN 11, creatinine 0.93. Denies nausea vomiting or diarrhea. Denies lightheadedness dizziness or focal deficits. Denies chest pain, palpitations or shortness of breath. Maintaining O2 sats of 100% on room air. Blood pressure soft ranging low 100s to 1 teens, we'll continue holding MAGNO inhibitor and Aldactone. Reevaluate these meds outpatient in clinic for further recommendations. Coreg resumed. Cleared by nephrology for discharge. Patient will be discharged home today in a stable condition with guarded prognosis. The impression and plan of care has been dictated as directed. : I performed a history and examination of this patient, discussed the same with the dictator. I agree with the dictator's note ,documented as a scribe. Any additional findings or plans will be noted. Patient Condition at Discharge: Stable Plan - Discharge Summary Discharge Rx Participant: Yes New Discharge Prescriptions: New Sodium Bicarbonate Tab 650 mg PO BID tab Continue Aspirin [Adult Low Dose Aspirin EC] 81 mg PO DAILY Carvedilol 25 mg PO BID Citalopram Hydrobromide [CeleXA] 20 mg PO DAILY Pravastatin Sodium [Pravachol] 20 mg PO HS ALPRAZolam [Xanax] 0.25 mg PO HS ALPRAZolam [Xanax] 0.25 mg PO BID PRN PRN Reason: Anxiety busPIRone HCL 15 mg PO DAILY Discontinued Spironolactone [Aldactone] 25 mg PO HS Benazepril HCl [Lotensin] 40 mg PO HS Discharge Medication List Aspirin [Adult Low Dose Aspirin EC] 81 mg PO DAILY 08/23/15 [History] Carvedilol 25 mg PO BID 08/23/15 [History] Citalopram Hydrobromide [CeleXA] 20 mg PO DAILY 08/23/15 [History] Pravastatin Sodium [Pravachol] 20 mg PO HS 11/02/18 [History] ALPRAZolam [Xanax] 0.25 mg PO BID PRN 10/22/22 [History] ALPRAZolam [Xanax] 0.25 mg PO HS 10/22/22 [History] busPIRone HCL 15 mg PO DAILY 10/22/22 [History] Sodium Bicarbonate Tab 650 mg PO BID tab 10/24/22 [Rx] Follow up Appointment(s)/Referral(s): Roland Unger Jr, DO [Primary Care Provider] - 3 Days Ambulatory/Diagnostic Orders: Basic Metabolic Panel [LAB.AMB] Time Frame: 3 Days, Location: None Selected Activity/Diet/Wound Care/Special Instructions: Continue to hold MAGNO inhibitor and Aldactone, secondary to soft blood pressures, potassium currently at 4.6; reevaluate with further recommendations outpatient in clinic Discharge Disposition: HOME WITH HOME HEALTH SERVICES
[2022-10-24 16:23] VITALS: BP 134/75; PULSE 67; TEMP 98
== END 2022-10-24 17:47 | disposition home health service (06) | DRG 683 ==
LOC: EC 13:56 → 3SCARD 16:29
PROVIDERS: ADMIT Family Medicine; ATTEND Family Medicine
DX: N17.0 Acute kidney failure with tubular necrosis (principal); E87.1 Hypo-osmolality and hyponatremia; I48.20 Chronic atrial fibrillation, unspecified; E87.20 Acidosis, unspecified; E87.5 Hyperkalemia; I10 Essential (primary) hypertension; R00.1 Bradycardia, unspecified; E78.5 Hyperlipidemia, unspecified; F41.9 Anxiety disorder, unspecified; F32.A Depression, unspecified; F17.210 Nicotine dependence, cigarettes, uncomplicated; F10.10 Alcohol abuse, uncomplicated; E86.1 Hypovolemia; Z79.82 Long term (current) use of aspirin; Z79.899 Other long term (current) drug therapy; Z88.1 Allergy status to other antibiotic agents
CPT/HCPCS: 36415; 80048; 80053; 80320; 81003; 83935; 84295; 84300; 84484; 85025; 85610; 93005; 96361; 96374; 99284

== ENCOUNTER → 2022-11-05 | Outpatient (CLI) | payer MEDICARE ==
--- NOTE | 2022-11-05 11:43 | US ---
EXAMINATION TYPE: US venous doppler duplex LE LT DATE OF EXAM: 11/05/2022 11:17 AM COMPARISON: NONE CLINICAL INDICATION: Male, 66 years old with history of I10 HTN,R60.0 LOWER EXT EDEMA; Edema x 4 days . Patient is on eliquis. No hx of DVT. SIDE PERFORMED: Left TECHNIQUE: The lower extremity deep venous system is examined utilizing real time linear array sonog servando with graded compression, doppler sonography and color-flow sonography. VESSELS IMAGED: Common Femoral Vein Deep Femoral Vein Greater Saphenous Vein * Femoral Vein Popliteal Vein Small Saphenous Vein * Proximal Calf Veins (* superficial vessels) Left Leg: No evidence of DVT. IMPRESSION:
== END | disposition home or self-care (01) ==
LOC: RADUSWWP 10:51
PROVIDERS: ATTEND Family Medicine
DX: I10 Essential (primary) hypertension (principal); R60.0 Localized edema; Z79.01 Long term (current) use of anticoagulants